=== PATIENT | female | born 1990 | race African-American/Black ===

== ENCOUNTER 2017-12-02 18:06 | Emergency (ER) | payer OTHER ==
[~2017-12-02] VITALS: Ht 160 cm; Wt 104.4 kg
[2017-12-02 19:22] LABS: HEMATOCRIT 37.6 % (36.0-46.0); HEMOGLOBIN 12.8 G/DL (11.9-15.5); MCH 29.4 PG (29.0-34.0); MCV 86.4 FL (83-99); PLATELET COUNT 239 K/uL (156-360); RBC DIS.WIDTH-CV 13.8 % (11.8-14.6); RBC DIS.WIDTH-SD 44.2 % (39-53); RED BLOOD COUNT 4.35 M/uL (3.80-5.20)
[2017-12-02 19:29] LABS: CHLORIDE 100 mEq/L (99-109); POTASSIUM 3.2 mEq/L (3.7-5.4); SODIUM 134 mEq/L (136-147)
[2017-12-02 19:31] LABS: GLUCOSE 97 mg/dL (70-99)
[2017-12-02 19:35] LABS: CREATININE 0.7 mg/dL (0.6-1.3); GFR ESTIMATE (CALCULATED) > 59 mL/min/
[2017-12-02 19:36] LABS: UREA NITROGEN (BUN) 6 mg/dL (9-23)
[2017-12-02 19:44] LABS: QUANTITATIVE HCG 66.4 MIU/ML
[2017-12-02] MEDS ORDERED: VALACYCLOVIR1000 MG PO (20:31)
[2017-12-02 21:26] LABS: SOURCE URINE
[2017-12-02 21:45] LABS: APPEARANCE SL.HAZY ((CLEAR)); BILIRUBIN NEGATIVE; BLOOD NEGATIVE; GLUCOSE (STRIP) NEGATIVE; KETONES 5; LEUKOCYTES MODERATE; NITRITE NEGATIVE; PROTEIN (STRIP) 100; SPECIFIC GRAVITY 1.026 (1.000-1.030)
[2017-12-02 21:54] LABS: BACTERIA RARE /HPF; EPITHELIAL CELLS RARE /HPF; MUCUS TRACE /LPF; RED BLOOD CELLS 15-20 /HPF (0-5); UCUL ADDED? YES; WHITE BLOOD CELLS 30-40 /HPF (0-5)
[2017-12-02 21:55] LABS: COLOR YELLOW ((YELLOW))
[2017-12-02] MEDS ORDERED: KEFLEX500 MG PO (21:57)
[2017-12-02 22:12] VITALS: BP 128/62
[2017-12-04 13:11] LABS: CHLAMYDIA TRACHOMATIS NEGATIVE; NEISSERIA GONORRHOEAE NEGATIVE
== END 2017-12-02 22:13 | disposition home or self-care (01) ==
LOC: EME 18:06
PROVIDERS: Physician Assistant Medical
DX: A60.04 Herpesviral vulvovaginitis (principal); N39.0 Urinary tract infection, site not specified; F17.200 Nicotine dependence, unspecified, uncomplicated
CPT/HCPCS: 80048; 81003; 84702; 85027; 87086; 87210; 87254; 87491; 87591; 99281; 99284; J0696

== ENCOUNTER 2018-03-06 05:31 | Emergency (ER) | payer SELFPAY ==
[~2018-03-06] VITALS: Ht 160 cm; Wt 91.9 kg
[~2018-03-06 05:31] MED LIST: KEFLEX500 MG PO; VALACYCLOVIR1000 MG PO
[2018-03-06 05:53] LABS: HEMATOCRIT 36.8 % (36.0-46.0); HEMOGLOBIN 13.1 G/DL (11.9-15.5); MCH 30.4 PG (29.0-34.0); MCHC 35.6 G/DL (30.0-36.0); MCV 85.4 FL (83-99); PLATELET COUNT 258 K/uL (156-360); RBC DIS.WIDTH-CV 12.4 % (11.8-14.6); RBC DIS.WIDTH-SD 38.8 % (39-53); RED BLOOD COUNT 4.31 M/uL (3.80-5.20); WHITE BLOOD COUNT 11.6 K/uL (4.1-10.2)
[2018-03-06 06:04] LABS: CHLORIDE 105 mEq/L (99-109); POTASSIUM 3.3 mEq/L (3.7-5.4); SODIUM 138 mEq/L (136-147)
[2018-03-06 06:06] LABS: GLUCOSE 140 mg/dL (70-99)
[2018-03-06 06:07] LABS: TOTAL PROTEIN 7.1 g/dL (6.4-8.3)
[2018-03-06 06:08] LABS: TOTAL BILIRUBIN 0.5 mg/dL (0.0-1.0)
[2018-03-06 06:10] LABS: ALKALINE PHOSPHATASE 79 IU/L (3-129); CREATININE 0.7 mg/dL (0.6-1.3); GFR ESTIMATE (CALCULATED) > 59 mL/min/
[2018-03-06 06:11] LABS: UREA NITROGEN (BUN) 4 mg/dL (9-23)
[2018-03-06 06:12] LABS: AST (GOT) 127 IU/L (2-34)
[2018-03-06 06:13] LABS: ALT (GPT) 304 IU/L (3-49); LIPASE 30 U/L (1.0-51.0)
[2018-03-06 10:21] LABS: APPEARANCE CLOUDY ((CLEAR)); BILIRUBIN NEGATIVE; BLOOD MODERATE; COLOR AMBER ((YELLOW)); GLUCOSE (STRIP) NEGATIVE; KETONES 80; LEUKOCYTES MODERATE; NITRITE NEGATIVE; PROTEIN (STRIP) 30; SPECIFIC GRAVITY 1.016 (1.000-1.030)
[2018-03-06 10:38] LABS: WHITE BLOOD CELLS 20-30 /HPF (0-5)
[2018-03-06 10:39] LABS: AMORPHOUS URATES CRYSTALS 1+; BACTERIA 3+ /HPF; EPITHELIAL CELLS 1+ /HPF; HYALINE CASTS 0-5 /LPF; MUCUS RARE /LPF; UCUL ADDED? YES; URIC ACID CRYSTALS RARE /HPF
[2018-03-06] MEDS ORDERED: MACROBID100 MG PO (11:01)
[2018-03-06] MEDS ORDERED: TYLENOL WITH C1 EACH PO (11:01)
[2018-03-06 11:20] VITALS: BP 145/88
== END 2018-03-06 11:22 | disposition home or self-care (01) ==
LOC: EME 05:31
PROVIDERS: Emergency Medicine
DX: O23.41 Unspecified infection of urinary tract in pregnancy, first trimester (principal); O26.831 Pregnancy related renal disease, first trimester; N20.0 Calculus of kidney; O99.331 Smoking (tobacco) complicating pregnancy, first trimester; F17.200 Nicotine dependence, unspecified, uncomplicated; Z3A.10 10 weeks gestation of pregnancy
CPT/HCPCS: 76770; 76801; 80053; 81003; 83690; 84702; 85027; 87077; 87086; 87186; J2270; J2405; J7030